=== PATIENT | female | born 1960 | race Caucasian/White ===

== ENCOUNTER 2022-12-04 14:26 | Emergency (ER) | payer BC, SELFPAY ==
[2022-12-04 14:26] VITALS: BP 171/111; PULSE 125; RESP 16; TEMP 36.1; O2SAT 99; BMI 31.5
--- NOTE | 2022-12-04 14:29 | CM.ED ---
SW responded to stroke alert. No family or support individual present. SW remains available if needs arise. Karla REDDY
--- NOTE | 2022-12-04 14:35 | EX.ED.VIS.HA ---
HPI History of Present Illness Chief Complaint: Stroke Alert Detail of Chief Complaint: Headache with blurry vision Informant: patient Onset/Context/Timing Onset: Today and Hours Context: Gradual Timing: Continuous Quality -Headache: Positive for Similar Prior Headaches Current Severity: Moderate Maximum Severity: Moderate Associated Symptoms/Injury Associated Symptoms: Positive for Visual Changes, Blurred Vision and Photophobia; Negative for Fever, Nausea, Numbness, Tingling or Visual Loss Injury - POON: Negative for Direct Trauma, Fall or Assault Narrative Narrative: 62-year-old female history of aortic stenosis, PVCs, and hypertension. She takes losartan. She has never had a stroke or mini stroke. She has had a history of prior ocular migraines. Today she developed headache with bilateral blurry vision. She describes it as lines going through her vision. She is also photophobic. She had a similar headache 2 days ago. She had an MRI years ago which she states was negative. She denies any trauma she is on no blood thinners. She denies any weakness to her arms and legs. Prior similar symptoms: Yes Recent Illness/Hospitalization: No PFSH PFSH Allergy/AdvReac Type Severity Reaction Status Date / Time sulfamethoxazole Allergy PT UNSURE Verified 12/04/22 14:32 [From Bactrim] OF REACTION trimethoprim [From Bactrim] Allergy PT UNSURE Verified 12/04/22 14:32 OF REACTION ROS ROS ED ROS Narrative Headache. Photophobia. Blurry vision. Review of Systems ROS Unobtainable: Denies due to encephalopathy Constitutional Constitutional ED: Denies chills or fever(s) Eyes Eyes: Reports blurry vision and change in vision ENT ENT ED: Denies ear pain or rhinorrhea Cardiovascular Cardiovascular: Denies chest pain Respiratory/Chest Respiratory/Chest: Denies cough or dyspnea Gastrointestinal Gastrointestinal: Denies abdominal pain Genitourinary Genitourinary ED: Denies dysuria or hematuria Musculoskeletal Musculoskeletal: Denies arthralgias Integumentary Denies abscess or Abrasions Neurologic Neurologic: Reports headache(s) Psychiatric Psychiatric: Denies anxiety or depression Endocrine Endocrinology: Denies polydipsia Hematologic/Lymphatic Hematologic/Lymphatic: Denies easy bleeding Allergic/Immunologic Allergic/Immunologic ED: Denies mouth swelling or tongue swelling EXAM Physical Exam Narrative Exam Narrative: 62-year-old female being evaluated in triage room 1. Vital signs are stable and elevated blood pressure 171/111. H EENT exam unremarkable. Pupils round reactive light extra motions intact. No facial droop. Normal speech. No trauma. Neck nontender no meningismus. No lymphadenopathy. Lungs clear to auscultation bilaterally. Heart regular rhythm tachycardic rate about 120 no murmur. Abdomen soft nontender. Moving all 4 extremities. 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 Normal dorsi plantarflexion. Normal sensation. No paresthesia. Neurologic exam normal fingertip to nose within normal limits. NIH is 0. Const Vital Signs: 12/04/22 14:26 Temperature 97 F L Temperature Source Temporal Pulse Rate 125 H Respiratory Rate 16 Blood Pressure 171/111 H Blood Pressure Mean 131 Pulse Ox 99 Oxygen Delivery Method Room Air Positive well nourished and well developed; Negative for cachectic, contractures or unkempt General Appearance ED: well developed and NAD; Negative for unkempt, cachectic, contractures, cyanotic or diaphoretic Nutritional Appearance: Negative for cachectic HEENT Reports normocephalic and moist mucous membranes atraumatic; Negative for trauma, tenderness, temporal artery tenderness or vesicular rash Eyes PERRL and EOMs intact bilaterally General Eye ED: Negative for pale conjunctiva or scleral icterus Neck no lymphadenopathy, supple, no meningeal signs and no JVD General: Negative for tenderness Resp normal respiratory effort and clear to auscultation bilaterally Effort and Inspection: Negative for retractions Auscultation: Negative for rales, rhonchi or wheezes Cardio regular rhythm, S1 normal heart sound, S2 normal heart sound and no murmurs; Negative for regular rate Back/Spine no CVA tenderness General Back: Negative for CVA tenderness or tenderness Cervical Spine: Negative for cervical spine tenderness Thoracic Spine / Upper Back: Negative for thoracic spinal tenderness Lumbar Spine / Lower Back: Negative for lumbar spinal tenderness Extremity normal to inspection, full ROM and normal capillary refill General Extremety ED: Negative for edema or tenderness General Extremity: Negative for edema Neuro oriented x3, CN's II-XII intact bilaterally and no sensory deficits noted Sensorium / Orientation: awake, alert, oriented to person, oriented to place and oriented to time; Negative for orientation impaired, lethargic or stuporous Coordination / Balance: [id number] test normal Speech: speech normal Motor Exam: strength 5/5 throughout Psych mental status grossly normal Appearance: Negative for unkempt Attitude: No agitated Mood & Affect: anxious; Negative for depressed or tearful Skin Lesions: no lesions Rashes: no rashes MDM MDM MDM Narrative Medical decision making narrative: 62-year-old female history of ocular migraines. Has a headache with photophobia and blurry vision. Otherwise she has no motor or sensory loss. NIH is 0. She will be treated as an ocular migraine. Screening labs. IV fluids, Toradol, Benadryl and Reglan. I will obtain a CT of her head neck. Clinically I do not think this is a stroke or intracranial bleed at this time. Repeat exam at 343 p.m. patient is doing well. Headache is resolved. Blurry vision is resolved. Patient had an MRI several years ago at [facility] which she states was unremarkable. She does not want to have the CTA done. She believes that this was one of her ocular migraines. Is feeling better. She did not even take the medication because a headache started going away. Repeat neurologic exam is normal NIH is 0. She is awake and alert. Normal motor strength both upper and lower extremities. Normal sensation. Normal speech. No facial droop. Discussed at length with both the patient and her . They understand the reason why was getting the CTA. They want to defer that at this time. She understands risks and benefits. They are both comfortable with just being discharged home. Will follow-up with their physician in [place] and/or that hospital if she needs further evaluation if her symptoms return. Lab Data Attestation: I reviewed the patient's lab results. Lab results narrative: CBC normal. White count of 7.8. H&H 14 and 43. Electrolytes unremarkable gap of 8. BUN of 16 creatinine 1.1. Glucose 110. Labs: Laboratory Results - last 24 hr 12/04/22 12/04/22 14:55 14:55 WBC 7.8 RBC 4.97 Hgb 14.0 Hct 43.5 MCV 87.5 MCH 28.2 MCHC 32.2 RDW Std Deviation 42.7 RDW Coeff of Chris 13.3 Plt Count 300 MPV 9.1 Immature Gran % (Auto) 0.100 Neut % (Auto) 50.4 Lymph % (Auto) 38.1 Spink % (Auto) 8.5 Eos % (Auto) 1.9 Baso % (Auto) 1.0 Absolute Neuts (auto) 3.9 Absolute Lymphs (auto) 2.97 Nucleated RBC % 0 Sodium 139 Potassium 3.6 Chloride 101 Carbon Dioxide 30.0 Anion Gap 8 BUN 16 Creatinine 1.16 H Estim Creat Clear Calc 55.77 Est GFR (MDRD) Af Amer 61 Est GFR (MDRD) Non-Af 51 L BUN/Creatinine Ratio 13.8 Glucose 110 H Calcium 9.3 Rhythm Strip Rhythm Strip: Sinus Rhythm Rate: 99 Ectopy: PVC(s) EKG Initial EKG: Attestation: I personally reviewed and interpreted this EKG as follows: Interpretation: Sinus Rhythm and No Acute Injury Pattern Comments: Normal sinus rhythm rate of 99 no acute signs of OH or ischemia. PVCs. Unchanged from prior EKG. Prior EKG tracings: available for review Prior: Unchanged Discharge Plan Triage Chief Complaint: Stroke Alert ED Provider: French Henry Dx/Rx/DC Orders Clinical Impression: Ocular migraine Instructions: ED, Migraine (Classical) Primary Care Provider: Care Physician,No Primary Referrals: Franck Mora MD [Med Staff - Medical Accountant] - As Needed NOT,DEFINED [Non-Staff] - Activity Restrictions/Additional Instructions: Follow-up with a local physician in your area or I referred you to one here in [place]. Repeat evaluation if your symptoms return. Disposition Disposition: Home, Self Care
[2022-12-04 14:48] VITALS: BMI 32.5
[2022-12-04] MEDS: 0.9% Normal Saline 1,000 ML 999 ML IV (14:49)
[2022-12-04 15:05] LABS: Absolute Lymphocyte Count 2.97 X10^3/uL (0.83-4.51); Absolute Neutrophil Count 3.9 X10^3/uL (2.0-7.7); Basophil# 0.08 X10^3/uL; Eosinophil# 0.15 X10^3/uL; Eosinophils% 1.9 % (0-5); Hematocrit 43.5 % (37-47); Lymphocyte # 2.97 X10^3/ul (0.83-4.51); Lymphocyte % 38.1 % (19-41); Mean Corp Hgb Conc 32.2 g/dL (32-36); Mean Corpuscular Hgb 28.2 pg (27.0-32.0); Mean Corpuscular Volume 87.5 fL (81-99); Mean Platelet Vol. 9.1 fl (6.2-12.0); Monocyte# 0.66 X10^3/uL; Monocyte% 8.5 % (0-10); NRBC Flagged by Analyzer 0 % (0-5); Neutrophil # 3.93 X10^3/uL (2.7-7.7); Neutrophil % 50.4 % (47-70); Platelet Count 300 K/mm3 (150-450); RBC Distribution Width CV 13.3 % (11.6-14.6); RBC Distribution Width SD 42.7 fl (35.1-43.9); Red Blood Count 4.97 M/mm3 (4.2-5.4); White Blood Count 7.8 K/mm3 (4.4-11.0)
[2022-12-04 15:24] LABS: Anion Gap 8 (5-15); BUN 16 mg/dL (7-18); BUN/Creat Ratio 13.8 RATIO (10-20); Calcium,Total 9.3 mg/dL (8.5-10.1); Chloride 101 mmol/L (98-107); Creatinine, Serum 1.16 mg/dL (0.55-1.02); EST Glomerular Filtration Rate 51 mL/min (>60); Est Glom Filt Rate - Afr Amer 61 mL/min (>60); Estimated Creatinine Clearance 55.77 ml/min; Glucose 110 mg/dL (74-106); Potassium 3.6 mmol/L (3.5-5.1); Sodium Level 139 mmol/L (136-145)
[2022-12-04 15:31] VITALS: BP 138/82; PULSE 78; RESP 17; O2SAT 96
[2022-12-04 15:46] VITALS: BP 153/95; PULSE 85; RESP 22; O2SAT 99
== END 2022-12-04 16:12 | disposition home or self-care (01) ==
PROVIDERS: Emergency Provider Emergency Medicine; Visit Provider Emergency Medicine
DX: G43.909 Migraine, unspecified, not intractable, without status migrainosus (principal); I10 Essential (primary) hypertension
CPT/HCPCS: 80048; 85025; 93005; 96361; 96374; 96375; 99285; J7030; A4216